=== PATIENT | male | born 1975 | race Caucasian/White ===

== ENCOUNTER 2020-08-16 13:38 | Outpatient (CLI) | payer MEDICARE, SELFPAY ==
--- NOTE | 2020-08-16 | ECHO_ITS ---
Patient Info Name: Monster Finnegan Age: 44 years : 1975 Gender: Male Ht: 73 in Wt: 290 lbs BSA: 2.65 m2 HR: 103 bpm BP: 114 / 83 mmHg Technical Quality: Good Exam Date: 08/16/2020 2:13 PM Exam Location: [facility] Pulmonary Patient Status: Outpatient Admit Date: 08/16/2020 Staff Ordering Physician: Yobany Alvarenga MD Glass Finisher: Karlee Nguyen RDCS Attending Provider: Yobany Alvarenga MD Referring Physician: Lyle HOROWITZ; Exam Type: CA echo doppler color flow Study Info Indications R07.89 - Other chest pain Complete two-dimensional, color flow and Doppler transthoracic echocardiogram is performed. Summary 1. Complete two-dimensional, color flow and Doppler transthoracic echocardiogram is performed. 2. Left ventricular chamber dimension is normal. 3. Left ventricular systolic function is normal, estimated at 60-65%. 4. The left ventricular diastolic function is grade I diastolic dysfunction. 5. E/e' 8 is minimally elevated. Left Ventricle E/e' 8 is minimally elevated. Left ventricular chamber dimension is normal. Left ventricular systolic function is normal, estimated at 60-65%. The left ventricular diastolic function is grade I diastolic dysfunction. Right Ventricle Right ventricular chamber dimension is normal. Right ventricular systolic function is normal. Left Atria Left atrial chamber dimension is normal. Right Atria Right atrial chamber dimension is normal. Aortic Valve The aortic valve is trileaflet. There is no aortic valve stenosis. There is no aortic valve regurgitation. Pulmonic Valve There is no pulmonic regurgitation. Mitral Valve There is no mitral valve stenosis. There is no mitral valve regurgitation. Tricuspid Valve There is no tricuspid valve regurgitation. Pericardium/Pleural There is no pericardial effusion. Inferior Vena Cava Normal inferior vena cava with >50% collapse upon inspiration consistent with normal right atrial pressure, 5 mmHg. Aorta The aortic root size at the sinus of Valsalva is normal. Left Ventricular Outflow Tract Name Value Normal LVOT 2D LVOT Diameter 2.1 cm LVOT Doppler LVOT Peak Gradient 5 mmHg LVOT Mean Gradient 3 mmHg LVOT VTI 17 cm LVOT VTI/AV VTI Ratio 1.2 LVOT Stroke Volume 62 ml LVOT CO 16.3 l/min LVOT CI 6.1 l/min/m2 Pulmonic Valve Name Value Normal PV Doppler PV Peak Gradient 3 mmHg Mitral Valve Name Value Normal MV Doppler
--- NOTE | ~2020-08-16 | XR_ITS ---
EXAMINATION: XR chest 2V DATE: 08/16/2020 14:01 INDICATION: Dyspnea on exertion TECHNIQUE: PA and lateral views of the chest were obtained. COMPARISON: None FINDINGS: The lungs are clear with no focal airspace opacities, pulmonary edema, pleural effusion or pneumothor ax. The cardiomediastinal silhouette is normal. Extensive thoracolumbar posterior spinal fusion with bilateral vertical rods beginning with laminar hooks at T5 extending beyond the caudal margin of the [id number] at the thoracolumbar junction. There appears to be fusion across the anterior margin of the T10-T11 and T11-T12 disc spaces. Mild pectus excavatum. IMPRESSION: 1. No acute cardiopulmonary disease. Reviewed, dictated and finalized at location . RESSURIST
== END 2020-08-16 13:39 | disposition home or self-care (01) ==
PROVIDERS: PCP Emergency Medicine; Visit Provider Emergency Medicine
DX: R07.9 Chest pain, unspecified (principal); R06.00 Dyspnea, unspecified
CPT/HCPCS: 71046; 93306

== ENCOUNTER 2020-09-02 08:21 | Outpatient (CLI) | payer MEDICARE, SELFPAY ==
--- NOTE | ~2020-09-02 | NM_ITS ---
EXAMINATION: NM marvin stress w perfusion DATE: 09/02/2020 10:55 INDICATION: Chest pain. TECHNIQUE: Rest images were obtained following intravenous administration of 9.6 mCi Tc99m tetrofosmi n (Myoview). The patient was infused intravenously with Lexiscan (regadenoson). Then, 30.9 mCi Tc99m tetrofosmin (Myoview) was administered intravenously, and stress images were obtained. Data was recon structed into short axis and horizontal and vertical long axis SPECT images. Gated SPECT images were also obtained. COMPARISON: None. FINDINGS: There is a small, mild, fixed perfusion defect involving mid inferolateral segment of left ventricle, consistent with infarct. There is no segmental wall motion abnormality. Left ventricular ejection fraction measures >70%. IMPRESSION: 1. 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 2. Normal left ventricular ejection fraction measuring >70%. Reviewed, dictated and finalized at location A. RANCE SALES AGENT IMPRESSION: 1. Small area of mild infarct involving mid inferolateral segment of left ventr icle. 2. Normal left ventricular ejection fraction measuring >70%.
--- NOTE | 2020-09-02 09:20 | EST_ITS ---
Patient Info Name: Monster Finnegan Age: 45 years : 1975 Gender: Male Ht: 73 in Wt: 295 lbs BSA: 2.68 m2 Exam Date: 09/02/2020 9:34 AM Exam Location: [facility] Stress Patient Status: Outpatient Admit Date: 09/02/2020 Staff Ordering Physician: Dixon Dominguez DO Attending Provider: Dixon Dominguez DO Exercise Technologist: Sneha Zaman RDCS Exercise Physician: Dixon Dominguez DO Exam Type: CA stress marvin w NM Study Info Indications R07.9 - Chest pain, unspecified A regadenoson stress test was performed. Summary 1. 1. Negative lexiscan stress test for ischemic ST changes by ECG criteria. 2. 2. Baseline hypertension. 3. 3. Nuclear scan to follow and will be reported separately. Please correlate with it. 4. 4. Patient informed of the above results. Protocol: Lexiscan Stress ECG Details Stage: REST Duration (min): 0 min : 45 sec HR (bpm): 113 SBP (mmHg): 161 DBP (mmHg): 98 Stage: REST Duration (min): 5 min : 48 sec HR (bpm): 103 SBP (mmHg): 161 DBP (mmHg): 98 Stage: STAGE 1 Duration (min): 0 min : 59 sec HR (bpm): 117 SBP (mmHg): 119 DBP (mmHg): 98 Stage: RECOVERY Duration (min): 1 min : 0 sec HR (bpm): 128 SBP (mmHg): 123 DBP (mmHg): 90 Stage: RECOVERY Duration (min): 2 min : 0 sec HR (bpm): 119 SBP (mmHg): 123 DBP (mmHg): 90 Stage: RECOVERY Duration (min): 3 min : 0 sec HR (bpm): 136 SBP (mmHg): 117 DBP (mmHg): 82 Stage: RECOVERY Duration (min): 4 min : 0 sec HR (bpm): 122 SBP (mmHg): 117 DBP (mmHg): 82 Stage: RECOVERY Duration (min): 5 min : 0 sec HR (bpm): 118 SBP (mmHg): 135 DBP (mmHg): 83 Stage: RECOVERY Duration (min): 5 min : 9 sec HR (bpm): 116 SBP (mmHg): 135 DBP (mmHg): 83 Rest HR: 103 bpm Peak HR: 136 bpm Rest Sys BP: 161 mmHg Peak Sys BP: 135 mmHg Max Pred HR: 174 bpm % Max Pred HR: 78 % Target HR: 148 bpm Max RPP: 18,360 bpm*mmHg Termination Reason: Completed protocol Cardiac Symptoms: Shortness of breath, Nausea Total Time: 1 min : 0 sec Rest Villarreal BP: 98 mmHg Peak Villarreal BP: 83 mmHg Total Dose: 0.4 mg Resting ECG Sinus rhythm. Stress ECG No ST changes. Arrhythmias None. Report Signatures
== END 2020-09-02 08:22 | disposition home or self-care (01) ==
PROVIDERS: PCP Emergency Medicine; Visit Provider Internal Medicine Cardiovascular Disease
DX: R07.89 Other chest pain (principal)
CPT/HCPCS: 78452; 93017; A9502; J2785

== ENCOUNTER 2023-04-14 00:45 | Day surgery (SDC) | payer MEDICARE, SELFPAY ==
[2023-04-02 15:41] VITALS: BMI 41.4
[2023-04-14 06:17] VITALS: BP 129/85; PULSE 59; RESP 18; TEMP 36.1; O2SAT 97
[2023-04-14] MEDS: LACTATED RINGERS 1,000 ML 150 ML IV CONT (06:28)
--- NOTE | 2023-04-14 07:25 | WPDANESEPPF ---
Anes - Initial Pre Proc Eval Procedure: Operation Date: 04/14/23 07:30 Proposed Procedures p Screening Colonoscopy - Elijah De León MD Date/Time: 04/14/23 07:25 Surgeon: Elijah De León MD Pre Op Diagnosis: neoplasm screening Patient Data Age: 47 Gender: M Height: 1.83 m Weight: 137.5 kg Last Vital Signs Temp 97 F L 04/14/23 06:17 Pulse 59 L 04/14/23 06:17 Resp 18 04/14/23 06:17 BP 129/85 04/14/23 06:17 Pulse Ox 97 04/14/23 06:17 O2 Del Method Room Air 04/14/23 06:17 Allergies Allergy/AdvReac Type Severity Reaction Status Date / Time No Known Allergies Allergy Verified 04/14/23 06:16 Home Medications Medication Instructions Recorded Confirmed Type amlodipine 10 mg tablet (Norvasc) 10 mg PO DAILY 08/07/20 04/02/23 History duloxetine 60 mg capsule,delayed 60 mg PO DAILY 08/07/20 04/02/23 History release (Cymbalta) irbesartan 300 mg tablet 300 mg PO DAILY 08/07/20 04/02/23 History rosuvastatin 10 mg tablet (Crestor) 10 mg PO DAILY 08/07/20 04/02/23 History metoprolol succinate 50 mg 50 mg PO DAILY 04/02/23 04/02/23 History tablet,extended release 24 hr Patient hx anesthesia problems: none Family hx anesthesia problems: none Results Review: All pre-operative results and documents have been reviewed as part of the pre-operative evaluation. [facility] Past Medical History Medical History PAUL (renal osteodystrophy) Surgical History Surgical History History of lumbar fusion Hx of right BKA Family History Family History Sibling Acute myeloid leukemia Father CAD (coronary artery disease) Diabetes mellitus Social History Social History Smoking status: Former smoker Tobacco type: cigarettes Alcohol intake: current Alcohol use details: rarely Substance use: current Substance use type: marijuana Other substance usage details: daily Living arrangements: with family Spiritual care concerns: No Anes - Eval Final PreProcedure Day of Procedure 04/14/23 07:25 Patient weight: morbidly obese Heart: regular rate and rhythm Lungs: clear to auscultation Airway: Mallampati scale class III Neurological: alert and oriented Last oral intake: >/= 8 hours ASA classification: III Emergent: no Anesthetic plan: proceed Anesthesia type and monitoring: general GIVS and standard monitoring Results Review: All pre-operative results and documents have been reviewed as part of the pre-operative evaluation. Informed Consent: The patient's anesthetic plan and its attendant risks and benefits were discussed with the patient/family/POA. Questions were solicited and answers provided to the satisfaction of the patient/family/POA.
--- NOTE | 2023-04-14 07:26 | PM.HPGS ---
History of Present Illness History of Present Illness Consent: Risks, benefits, and alternatives have been discussed and questions answered. Patient agrees to proceed with procedure. Chief complaint: neoplasm screening Narrative: Monster Finnegan is a 47 year old male here for screening colonoscopy, had one 10 years ago for GI issues Review of Systems Constitutional: Constitutional: Denies headache(s) and Denies weakness Eyes: Eyes: Denies blurry vision ENT: Reports Normal hearing present, Denies headache(s) and Denies neck pain Cardiovascular: Cardiovascular: Denies chest pain and Denies dyspnea Respiratory: Respiratory: Denies dyspnea Gastrointestinal: Gastrointestinal: Reports no additional gastrointestinal complaints Genitourinary: Genitourinary: Denies dysuria Musculoskeletal: Musculoskeletal: Denies neck pain Integumentary/Breasts: Skin/Breast: Denies dry skin Neurologic: Reports Normal hearing present, Denies headache(s) and Denies weakness Psychiatric: Psychiatric: Denies anxiety Endocrine: Endocrine: Denies change in body appearance Hematologic/Lymphatic: Hematologic/Lymphatic: Denies easy bleeding Allergic/Immunologic: Allergic/Immunologic: Denies urticaria PMF Past Medical History Medical History (Updated 04/14/23 @ 07:27 by Elijah De León MD) Colon cancer screening PAUL (renal osteodystrophy) Surgical History Surgical History History of lumbar fusion Hx of right BKA Family History Family History Sibling Acute myeloid leukemia Father CAD (coronary artery disease) Diabetes mellitus Social History Social History Smoking status: Former smoker Tobacco type: cigarettes Alcohol intake: current Alcohol use details: rarely Substance use: current Substance use type: marijuana Other substance usage details: daily Living arrangements: with family Spiritual care concerns: No Meds Home Medications and Allergies Home Medications Medication Instructions Recorded Confirmed Type amlodipine 10 mg tablet (Norvasc) 10 mg PO DAILY 08/07/20 04/02/23 History duloxetine 60 mg capsule,delayed 60 mg PO DAILY 08/07/20 04/02/23 History release (Cymbalta) irbesartan 300 mg tablet 300 mg PO DAILY 08/07/20 04/02/23 History rosuvastatin 10 mg tablet (Crestor) 10 mg PO DAILY 08/07/20 04/02/23 History metoprolol succinate 50 mg 50 mg PO DAILY 04/02/23 04/02/23 History tablet,extended release 24 hr Allergies Allergy/AdvReac Type Severity Reaction Status Date / Time No Known Allergies Allergy Verified 04/14/23 06:16 Vital Signs Vital Signs - 24 hr 04/14/23 06:17 Temperature 97 F L Pulse Rate 59 L Respiratory Rate 18 Blood Pressure 129/85 Pulse Oximetry 97 Oxygen Delivery Room Air Exam Const: General: comfortable and no acute distress HENMT: Face/Nose/Sinus: Normal nares present Eyes: General: appearance normal, both eyes and all related structures Neck: Neck: no JVD Resp: Auscultation: clear to auscultation bilaterally Cardio: Rate: regular rate Rhythm: regular rhythm GI: Inspection: non-distended GI Palp: Yes Soft to palpation Skin: General skin exam: normal color Neuro: General: gait normal Speech: normal speech Extrem: General: normal to inspection Psych: Mental Status: mental status grossly normal Assessment and Plan Assessment and plan (1) Colon cancer screening: Code(s): Z12.11 - Encounter for screening for malignant neoplasm of colon Status: Acute Assessment and Plan: colonoscopy
[2023-04-14 07:50] VITALS: BP 87/51; PULSE 62; RESP 18; O2SAT 93
[2023-04-14 08:00] VITALS: BP 101/66; PULSE 60; RESP 12; O2SAT 97
[2023-04-14 08:10] VITALS: BP 103/67; PULSE 63; RESP 15; O2SAT 100
== END 2023-04-14 08:18 | disposition home or self-care (01) ==
PROVIDERS: PCP Emergency Medicine; Visit Provider Internal Medicine Gastroenterology
PROC: 0DJD8ZZ Inspection of Lower Intestinal Tract, Via Natural or Artificial Opening Endoscopic (ICD-10-PCS; CPT 45378; principal; 2023-04-14 07:30)
DX: Z12.11 Encounter for screening for malignant neoplasm of colon (principal); D12.3 Benign neoplasm of transverse colon; N25.0 Renal osteodystrophy; Z98.1 Arthrodesis status; Z89.511 Acquired absence of right leg below knee; Z87.891 Personal history of nicotine dependence; F12.90 Cannabis use, unspecified, uncomplicated; E66.01 Morbid (severe) obesity due to excess calories; Z68.41 Body mass index [BMI] 40.0-44.9, adult
CPT/HCPCS: 45385; 88305; J2704; J7120

== ENCOUNTER 2025-09-06 04:08 | Emergency (ER) | payer MEDICARE, SELFPAY ==
--- NOTE | ~2025-09-06 | US_ITS ---
EXAMINATION: US scrotum doppler DATE: 09/06/2025 06:02 INDICATION: Right testicular pain. TECHNIQUE: Grayscale and Doppler ultrasound images of the testes were obtained. COMPARISON: None. FINDINGS: The right testis measures 2.4 x 3.0 x 2.5 cm. The left testis measures 4.2 x 2.7 x 2.7 cm. There is normal vascular flow to both testes. The right epididymis is enlarged and hypoechoic with increased vascular flow, consistent with epididymitis. The left epididymis is enlarged and hypoechoic with increased vascular flow, consistent with epididymitis. There is a small right hydrocele. IMPRESSION: 1. Bilateral epididymitis. 2. Small right hydrocele. Reviewed, dictated and finalized at location E. E PLANT OPERATOR
[2025-09-06 04:20] VITALS: BP 163/102; PULSE 85; RESP 18; TEMP 36.4; O2SAT 100
--- NOTE | 2025-09-06 05:02 | ED.MALEGU ---
HPI - Male Genitourinary General Chief complaint: Urogenital-Male Stated complaint: R testicle pain Time Seen by Provider: 09/06/25 04:27 Source: patient Mode of arrival: ambulatory Limitations: no limitations History of Present Illness HPI Narrative: Patient is a 50-year-old male presents to the emergency department complaining of right testicle pain. Patient notes he has been having pain that seems to come and go over the past 2-3 months, seems to, movement, gets better when he rests and ices it, last maybe a few hours at a time, has not seen anyone for it. Patient notes yesterday morning he woke up with pain and it was constant all throughout the day and then seemed to get markedly worse around 8:00 p.m. last night. Patient denies any penile discharge. Patient is being sexually active, denies any history of sexually transmitted infections. Patient denies any fever, nausea, vomiting, changes in his bowel habits. Patient is unsure if he has much of any dysuria as he does not have agree to sensation and very traumatic injury years ago. Related Data Home Medications ?Medication ?Instructions ?Recorded ?Confirmed ?Last Taken ?Type irbesartan 300 mg tablet 300 mg PO DAILY 08/07/20 03/23/25 Unknown History rosuvastatin 10 mg tablet (Crestor) 10 mg PO DAILY 08/07/20 03/23/25 Unknown History dextroamphetamine-amphetamine 30 30 mg PO DAILY 03/24/24 03/23/25 Unknown History mg tablet (Adderall) duloxetine 60 mg capsule,delayed 120 mg PO DAILY 03/24/24 03/23/25 Unknown History release (Cymbalta) amlodipine 10 mg tablet (Norvasc) 5 mg PO DAILY 03/23/25 03/23/25 Unknown History Allergies Allergy/AdvReac Type Severity Reaction Status Date / Time No Known Allergies Allergy Verified 03/24/24 15:30 Review of Systems Review of Systems: A 10 system review of systems was completed on the patient and is negative except for what is stated in the HPI. Nursing and ancillary documentation was reviewed. [facility] Past Medical History Medical History Colon cancer screening PAUL (renal osteodystrophy) Surgical History Surgical History History of lumbar fusion Hx of right BKA Family History Family History Sibling Acute myeloid leukemia Father CAD (coronary artery disease) Diabetes mellitus Social History Social History Smoking status: Former smoker Tobacco type: cigarettes Alcohol intake: current Alcohol use details: rarely Substance use: current Substance use type: marijuana Other substance usage details: daily Living arrangements: with family Spiritual care concerns: No Exam Narrative: CONST: Moderate acute distress. Well nourished. HENMT: Head is normocephalic and atraumatic. Moist mucous membranes. No posterior oropharynx erythema. EYES: No scleral icterus. No conjunctival injection or pallor. PERRL. NECK: No meningeal signs. RESP: Able to speak in full sentences. Normal respiratory effort. CTAB. CARDIO: Regular rate. Regular rhythm. 2+ femoral and radial pulses bilaterally. GI: Nondistended. No tenderness to palpation. Soft. : No CVA tenderness to palpation. SKIN: No rashes or lesions noted on exposed skin. NEURO: Oriented x3. Moves all extremities. EXTREM/MSK/BACK: Right lower extremity amputation PSYCH: Normal affect. : Penis: Yes normal penis Testes: testicular tenderness on the right and diffuse Other: Right testicle is high riding when compared to the left. Difficult to discern as to whether not swelling is present in the right testicle given how high riding it is. Severe tenderness to palpation of the right testicle diffusely. No tenderness to palpation of the left testicle. Cremasteric reflex is present on the left and absent on the right. Course Vital Signs Vital signs: Vital Signs Temperature 97.6 F 09/06/25 04:20 Pulse Rate 85 09/06/25 04:20 Respiratory Rate 18 09/06/25 04:20 Blood Pressure 163/102 H 09/06/25 04:20 Pulse Oximetry 100 09/06/25 04:20 Oxygen Delivery Room Air 09/06/25 04:20 Temperature 97.6 F 09/06/25 04:20 Pulse Rate 77 09/06/25 07:01 Respiratory Rate 10 L 09/06/25 07:01 Blood Pressure 149/99 H 09/06/25 07:01 Pulse Oximetry 96 09/06/25 07:01 Oxygen Delivery Room Air 09/06/25 04:20 [facility] MDM Narrative Medical decision making narrative: Patient presents with the above complaint. Initial vitals are remarkable for no significant abnormalities. Physical examination as noted above. Plan discussed: Laboratory analysis, morphine, IV fluids, Zofran, stat Urology consultation, stat ultrasound of the scrotum with Doppler. We discussed attempting detorsion maneuvers, patient would like pain medications 1st, urology has been paged. 05:20 -I spoke with Urology Dr. Croft who notes to obtain the official ultrasound. Note low likelihood of any salvage at this point given the duration of symptoms. Notes I can try to perform manual detorsion and see if it helps. 05:45 - Ultrasound at bedside. Blood flow noted to right testicle. CBC reveals a hemoglobin of 12.0. Comprehensive metabolic panel is without any significant abnormalities. Lactic acid is 0.7. Urinalysis is without any abnormalities. I again spoke with Urology, no acute urologic interventions, agrees with plan for antibiotics, pain medications, scrotal support, follow-up with urology. On reassessment patient is resting comfortably appearing in no acute distress. Patient informed of results. Patient does note that he practices anal sex, given this we will treat with a 1 time dose of Rocephin IM 500 mg and 500 mg of levofloxacin p.o. with 1st dose in the ER and a 9 day prescription to be taken once daily. Patient was reassessed at the bedside. No changes in physical exam. Patient is in no acute distress. The patient has remained stable throughout the entire ED visit. Counseled patient regarding diagnostic results and potential diagnosis. Anticipatory guidance provided. Patient instructed to follow up with Urology in 1-2 weeks.. Patient counseled on: false reassurance from an emergency department evaluation; no current evidence of a medical emergency; return immediately for any new, recurrent, worsening, concerning, or refractory symptoms. Patient prescribed Mondamin, levofloxacin, ibuprofen. Prescription sent to preferred pharmacy. Medications discussed with patient. Additional verbal and printed discharge instructions were given and discussed with the patient. Patient verbally acknowledges understanding of condition and discharge instructions. All questions were answered to the patient's satisfaction. Patient is in agreement with the plan of care. The patient is stable for discharge and was discharged without incident. Differential Diagnosis Differential Diagnosis: Testicular torsion, varicocele, hydrocele, epididymitis, orchitis, testicular mass, hernia, UTI, ureterolithiasis. Medical Records I have reviewed the following patient records and this information was taken into consideration when formulating the assessment and plan.: previous ER visits Lab Data MDM Lab Attestation statement: I personally reviewed the patient's lab results. 09/06/25 05:11 09/06/25 05:11 Labs: Lab Results 09/06/25 09/06/25 Range/Units 05:11 06:32 WBC 7.7 (4.5-10.0) K/mm3 RBC 4.04 L (4.6-6.20) M/mm3 Hgb 12.0 L (14.0-18.0) g/dL Hct 36.5 L (42.0-52.0) % MCV 90.3 (80-100) fl MCH 29.7 (26-34) pg MCHC 32.9 (32-36) g/dl RDW 14.1 (11.5-14.5) % Plt Count 285 (150-375) k/mm3 MPV 8.4 (7.4-10.4) fl Immature Gran % (Auto) 0.3 (0-0.5) % Neut % (Auto) 72.0 (45.5-73.1) % Lymph % (Auto) 19.8 (18.3-44.2) % [place] % (Auto) 6.3 (2.6-8.5) % Eos % (Auto) 1.3 (0-4.4) % Baso % (Auto) 0.3 (0.2-1.2) % Lymph # (Auto) 1.53 (0.9-3.2) K/mm3 [place] # (Auto) 0.5 (0.1-0.6) K/mm3 Eos # (Auto) 0.1 (0-0.3) K/mm3 Baso # (Auto) 0.0 (0.0-0.1) K/mm3 Abs Immat Gran (auto) 0.02 (0.00-0.031) K/mm3 Absolute Neuts (auto) 5.6 (1.3-6.7) K/mm3 Absolute Nucleated RBC 0.000 (0.0-0.012) K/mm3 Nucleated RBC % 0.0 (0.0-0.2) % Sodium 135 L (137-145) mmol/L Potassium 3.9 (3.4-5.0) mmol/L Chloride 104 (98-107) mmol/L Carbon Dioxide 28 (22-30) mmol/L Anion Gap 3 L (4-12) mmol/L BUN 15 (9-20) mg/dL Creatinine 0.99 (0.7-1.3) mg/dL Estim Creat Clear Calc 105 ml/min Estimated GFR > 60 (59 - ) Glucose 93 (65-110) mg/dL Lactic Acid 0.7 (0.7-2.0) mmol/L Calcium 8.9 (8.4-10.2) mg/dL Magnesium 2.0 (1.6-2.3) mg/dL Total Bilirubin 0.4 (0.2-1.3) mg/dL AST 30 (17-59) U/L ALT 20 (6-50) U/L Alkaline Phosphatase 104 (38-126) U/L Total Protein 7.4 (6.3-8.2) g/dL Albumin 3.8 (3.5-5.1) g/dL Urine Color Yellow (Yellow) Urine Appearance Clear (Clear) Urine pH 6.5 (5.0-9.0) Ur Specific [place] 1.017 (1.001-1.035) Urine Protein Negative (Negative) mg/dL Urine Glucose (UA) Negative (Negative) mg/dL Urine Ketones Negative (Negative) mg/dL Ur Blood (Man) Negative (Negative) Urine Nitrate Negative (Negative) Urine Bilirubin Negative (Negative) Urine Urobilinogen 1.0 (<2.0) mg/dL Leukocyte Esterase Rfl Negative (Negative) CARMELA/UL C. trachomatis (PCR) Pending N. gonorrhoeae (PCR) Pending T. vaginalis (PCR) Not detected (NOT DETECTE) Imaging Data Radiologist's impression: ITS Impressions Scrotum Ultrasound 09/06/25 06:55 IMPRESSION: 1. Bilateral epididymitis. 2. Small right hydrocele. Discharge Plan Discharge Clinical Impression: Epididymitis, Hydrocele Patient Disposition: Home Condition: Stable Instructions: Antibiotic Form, Epididymitis (ED), Testicle Pain (ED) Additional Instructions: Take the antibiotic as prescribed to completion, take the pain medications as needed, scrotal support such as wearing the trach strength to support your scrotum, ice packs as needed for any discomfort for 15 minutes at a time, do not go to sleep with an ice pack in place, follow-up with urology in the next 1-2 weeks, call to schedule appointment. Return immediately to the emergency department for any new or concerning symptoms especially any emergent concerns for life, limb, Bull. Patient Language: [place] Prescriptions: New levofloxacin 500 mg tablet 500 mg PO DAILY 9 Days Qty: 9 0RF Rx Instructions: Start on 09/07/25 ibuprofen 400 mg tablet 400 mg PO Q6H PRN (Reason: pain) Qty: 30 0RF hydrocodone-acetaminophen 5-325 mg tablet 1 tablet PO Q6H MDD 4 tabs PRN (Reason: pain) 3 Days Qty: 12 0RF No Action amlodipine [Norvasc] 10 mg tablet 5 mg PO DAILY irbesartan 300 mg tablet 300 mg PO DAILY rosuvastatin [Crestor] 10 mg tablet 10 mg PO DAILY duloxetine [Cymbalta] 60 mg capsule,delayed release(DR/EC) 120 mg PO DAILY dextroamphetamine-amphetamine [Adderall] 30 mg tablet 30 mg PO DAILY metoprolol succinate 50 mg tablet extended release 24 hr See Rx Instructions .ROUTE .COMPLEX Qty: 90 2RF Dose Instruction: TAKE 1 TABLET BY MOUTH EVERY DAY Rx Instructions: TAKE 1 TABLET BY MOUTH EVERY DAY Follow-up/Referrals: Odessa Croft MD [Physician, Urology] - 1 Week Yobany Alvarenga MD [Primary Care Provider, Family Practice] Time of Disposition: 08:02
[2025-09-06] MEDS: MORPHINE SULFATE (*CRX) 4 MG/ML INJ 8 MG IV PUSH (05:16)
[2025-09-06] MEDS: ONDANSETRON INJ 4 MG/2 ML VIAL IV PUSH (05:16)
[2025-09-06] MEDS: SODIUM CHLORIDE 0.9% IV 1,000 ML 999 ML IV CONT (05:16)
[2025-09-06 05:17] LABS: Hematocrit 36.5 % (42.0-52.0); Hemoglobin 12.0 g/dL (14.0-18.0); Immature Granulocyte Percent A 0.3 % (0-0.5); Lymphocytes Absolute Auto 1.53 K/mm3 (0.9-3.2); Mean Corpuscular HGB Conc 32.9 g/dl (32-36); Mean Corpuscular Hemoglobin 29.7 pg (26-34); Mean Corpuscular Volume 90.3 fl (80-100); Nucleated Red Blood Cells Absolute Auto 0.000 K/mm3 (0.0-0.012); Nucleated Red Blood Cells Perc 0.0 % (0.0-0.2); Platelet Count Result 285 k/mm3 (150-375); Red Blood Count 4.04 M/mm3 (4.6-6.20); White Blood Count 7.7 K/mm3 (4.5-10.0)
[2025-09-06 05:27] LABS: Alanine Aminotransferase 20 U/L (6-50); Albumin Level 3.8 g/dL (3.5-5.1); Alkaline Phosphatase 104 U/L (38-126); Anion Gap 3 mmol/L (4-12); Aspartate Amino Transferase 30 U/L (17-59); Bilirubin,Total 0.4 mg/dL (0.2-1.3); Blood Urea Nitrogen 15 mg/dL (9-20); Calcium 8.9 mg/dL (8.4-10.2); Carbon Dioxide 28 mmol/L (22-30); Chloride 104 mmol/L (98-107); Estimated CRCL calculation 105 ml/min; Estimated Glomerular Filt Rate > 60; Glucose 93 mg/dL (65-110); Magnesium 2.0 mg/dL (1.6-2.3); Potassium 3.9 mmol/L (3.4-5.0); Sodium 135 mmol/L (137-145); Total Protein 7.4 g/dL (6.3-8.2)
[2025-09-06 05:30] VITALS: BP 161/103; PULSE 79; RESP 12; O2SAT 96
[2025-09-06 06:30] VITALS: BP 169/105; PULSE 79; RESP 9; O2SAT 96
[2025-09-06 06:31] VITALS: BP 165/104; PULSE 87; RESP 18; O2SAT 97
[2025-09-06] MEDS: MORPHINE SULFATE (*CRX) 4 MG/ML INJ IV PUSH (06:33)
[2025-09-06 06:41] LABS: Add Urine Microscopic? NO; Appearance Urine Clear (Clear); Glucose Urine UA Negative (Negative); Leukocyte Esterase Ur Negative LEU/UL (Negative); Nitrate Urine Negative (Negative); Specific Grav Ur 1.017 (1.001-1.035)
[2025-09-06 06:46] VITALS: BP 163/97; PULSE 76; O2SAT 97
[2025-09-06 07:01] VITALS: BP 149/99; PULSE 77; RESP 10; O2SAT 96
[2025-09-06 07:45] LABS: Trichomonas Vag PCR NOT DETECTED (NOT DETECTE)
[2025-09-06] MEDS: cefTRIAXone 0.5 GM, LIDOCAINE 1% LOCAL INJ 2.1 ML IM (08:15)
== END 2025-09-06 08:23 | disposition home or self-care (01) ==
PROVIDERS: Emergency Provider Student in an Organized Health Care Education/Training Program; PCP Emergency Medicine
DX: N45.1 Epididymitis (principal); N43.3 Hydrocele, unspecified; Z11.3 Encounter for screening for infections with a predominantly sexual mode of transmission; N25.0 Renal osteodystrophy; Z98.1 Arthrodesis status; Z87.891 Personal history of nicotine dependence; Z89.511 Acquired absence of right leg below knee
CPT/HCPCS: 36415; 76870; 80053; 81003; 83605; 83735; 85025; 87491; 87591; 87661; 93976; 96361; 96372; 96374; 96375; 96376; 99284; A9270; J0696; J2003; J2270; J2405; J7030